=== PATIENT | female | born 1940 | race Caucasian/White ===

== ENCOUNTER 2022-12-17 07:47 | Day surgery (SDC) | payer MEDICARE, BC ==
[2022-12-12 10:45] LABS: BILIRUBIN,URINE NEGATIVE (Neg); CLARITY,URINE CLEAR (Clear); COLOR,URINE YELLOW (Yellow); GLUCOSE, URINE NEGATIVE (Neg); KETONES,URINE NEGATIVE (Neg); LEUKOCYTE ESTERASE ,URINE NEGATIVE (Neg); NITRITES, URINE NEGATIVE (Neg); OCCULT BLOOD,URINE TRACE-INTACT (Neg); PROTEIN,URINE NEGATIVE (Neg); UROBILINOGEN,URINE 0.2 E.U/dL (0.2-1.0)
[2022-12-12 10:52] LABS: ALBUMIN 4.2 G/DL (3.4-5.0); ALBUMIN/GLOBULIN RATIO 1.1 (1.1-1.5); ALKALINE PHOSPHATASE 86 IU/L (46-116); BLOOD UREA NITROGEN 12 MG/DL (7-18); BUN/CREATININE RATIO 15.2 (10.0-20.0); CALCIUM 9.9 MG/DL (8.5-10.1); CHLORIDE 103 MMOL/L (99-107); CREATININE 0.79 MG/DL (0.40-0.90); PRE OP ALT 33 U/L (30-65); PRE OP ANION GAP 9 (8-16); PRE OP AST 17 U/L (10-37); PRE OP BILIRUB, TOTAL 0.4 MG/DL (0.0-1.0); PRE OP GLUCOSE 77 MG/DL (70-104); PRE OP POTASSIUM 3.6 MMOL/L (3.4-5.1); PRE OP SODIUM 143 MMOL/L (135-145); TOTAL CARBON DIOXIDE 31.5 MMOL/L (24-32); TOTAL PROTEIN 7.9 G/DL (6.4-8.2); UA COLLECTION TYPE CLN CATCH MIDSTREAM; eGFR 70 ML/MIN
[2022-12-12 10:55] LABS: BACTERIA,URINE FEW /HPF (Neg); MUCUS STRANDS NONE SEEN /LPF (Neg); RBC,URINE 0-2 /HPF (0-2); SQUAMOUS EPITHELIAL CELL,UR FEW /LPF (FEW); WBC,URINE NONE SEEN /HPF (0-4)
[2022-12-12 11:08] LABS: BASOPHILS # (AUTO) 0.1 X10'3 (0-0.2); BASOPHILS % (AUTO) 1.1 % (0-1); EOSINOPHILS # (AUTO) 0.2 X10'3 (0-0.9); EOSINOPHILS % (AUTO) 3.4 % (0-6); LYMPHOCYTES # (AUTO) 1.2 X10'3 (1.1-4.8); LYMPHOCYTES % (AUTO) 19.9 % (21-51); MEAN CORPUSCULAR HEMOGLOBIN 30.9 PG (27.0-31.0); MEAN CORPUSCULAR HGB CONC 33.1 g/dL (33.0-36.5); MEAN CORPUSCULAR VOLUME 93.3 FL (78-98); MEAN PLATELET VOLUME 8.9 FL (7.4-10.4); MONOCYTES # (AUTO) 0.7 X10'3 (0-0.9); MONOCYTES % (AUTO) 10.7 % (2-12); NEUTROPHILS % (AUTO) 64.9 % (42-75); PRE OP HEMATOCRIT 44.7 % (35.0-45.0); PRE OP HEMOGLOBIN 14.8 g/dL (12.0-16.0); PRE OP PLATELET COUNT 306 X10'3 (140-440); PRE OP WHITE BLOOD COUNT 6.1 10'3 (4.8-10.8); RED BLOOD COUNT 4.79 X10'6 (4.20-5.60); RED CELL DISTRIBUTION WIDTH 13.1 % (11.5-14.5)
[~2022-12-17] VITALS: Ht 167.6 cm; Wt 50.0 kg
[2022-12-17] VITALS (10 sets, daily range): BP systolic 107–147; BP diastolic 49–69; PULSE 58–98; RESP 10–16; TEMP 98.1; O2SAT 93–100
[~2022-12-17 07:47] MED LIST: AMIT25TA9 PO; ATOR20TA66 PO; CHOL231P PO; FAMO40TA7 PO; FLUT1BLS16 INH; MULT-1085 PO; cefazolin 2gm/D5W 100mL 100 ML IV ONE; famotidine 20mg tablet PO ONE; ringers solution, lacted 1,000 ML IV SCH
[2022-12-17] MEDS ORDERED: BUPIVAcaine/PF 2.5 mg/ml (0.25%) 30ml vial ONE (10:01)
[2022-12-17] MEDS ORDERED: ringers solution, lacted 1,000 ML IV SCH (10:05)
[2022-12-17] MEDS ORDERED: hydrALAZINE 20mg/ml inj. IV PRN (10:05)
[2022-12-17] MEDS ORDERED: meperidine/PF 25mg/ml syringe IV PRN ×3 (10:05)
[2022-12-17] MEDS ORDERED: acetaminophen 1,000mg/100ml IV 100 ML IV PRN (10:05)
[2022-12-17] MEDS ORDERED: ondansetron/PF 4mg/2ml inj IV PRN (10:05)
[2022-12-17] MEDS ORDERED: labetalol 20mg/4ml (5mg/ml) syringe IV PRN (10:05)
[2022-12-17] MEDS ORDERED: morphine 4 MG/ML inj SYRINge IV PRN (10:05)
[2022-12-17] MEDS ORDERED: morphine 2 MG/ML inj. syringe IV PRN (10:05)
[2022-12-17] MEDS ORDERED: proCHLORperazine 10 MG/2 ml inj IV PRN (10:05)
[2022-12-17] MEDS ORDERED: sevoflurane 250ml liquid IH ONE (11:16)
[2022-12-17] MEDS ORDERED: fentaNYL/PF 50MCG/1 ML 2ML syringe ONE (11:17)
[2022-12-17] MEDS ORDERED: midazolam 1 mg/ML 2ml injection ONE (11:17)
[2022-12-17] MEDS ORDERED: LIDOcaine 2% (20mg/ml) 5ml vial ONE (11:46)
[2022-12-17] MEDS ORDERED: ondansetron/PF 4mg/2ml inj ONE (11:46)
[2022-12-17] MEDS ORDERED: dexamethasone sod phosphate 4mg/ml inj. ONE (11:46)
[2022-12-17] MEDS ORDERED: rocuronium 10mg/ml inj IV ONE (11:46)
[2022-12-17] MEDS ORDERED: propofol inj 20 ML IV ONE (11:46)
[2022-12-17] MEDS ORDERED: BUPIVAcaine/PF 2.5 mg/ml (0.25%) 30ml vial IJ ONE (11:55)
[2022-12-17] MEDS ORDERED: neostigmine methylsulfate 1 MG/ML 10ml vial ONE (12:33)
[2022-12-17] MEDS ORDERED: glycopyrrolate 0.2mg/ml inj ONE (12:33)
[2022-12-17] MEDS ORDERED: morphine 4 MG/ML inj SYRINge IV ONE (12:36)
--- NOTE | 2022-12-17 12:45 | NUR ---
Received from OR via [facility], accompanied by Anesthesiologist and report given by [facility] Anesthesiologist. PATIENT WAKING UP, DENIES PAIN, V/S WNL, SCD ON , PIV 20G ISAEL, NINO LAPS SITES CLOSED C/D/I TO ABDOMEN. Addendum: 12/17/22 at 1257 by Simón Larkin RN Amended: Links added.
--- NOTE | 2022-12-17 14:05 | NUR ---
ALL DISCHARGE CRITERIA HAS BEEN MET. VSS, PAIN AT A TOLERABLE LEVEL, ABLE TO SAFELY AMBULATE AND TRANSFER SELF. IV TAKEN OUT WITHOUT ANY COMPLICATIONS. ALL DISCHARGE INSTRUCTIONS COVERED WITH PATIENT AND ALL QUESTIONS ANSWERED. PATIENT TAKEN OUT VIA WHEELCHAIR WITH ALL BELONGINGS TO PERSONAL VEHICLE WHERE FRIEND DROVE PATIENT HOME. Addendum: 12/17/22 at 1406 by Simón Larkin RN Amended: Links added.
== END 2022-12-17 14:05 | disposition home or self-care (01) ==
LOC: PAS 07:47
PROVIDERS: ATTEND Surgery
DX: K40.20 Bilateral inguinal hernia, without obstruction or gangrene, not specified as recurrent (principal); K42.9 Umbilical hernia without obstruction or gangrene; K41.90 Unilateral femoral hernia, without obstruction or gangrene, not specified as recurrent; J44.9 Chronic obstructive pulmonary disease, unspecified; E78.5 Hyperlipidemia, unspecified; M19.90 Unspecified osteoarthritis, unspecified site; K21.9 Gastro-esophageal reflux disease without esophagitis; Z79.899 Other long term (current) drug therapy; Z96.651 Presence of right artificial knee joint; Z90.49 Acquired absence of other specified parts of digestive tract; Z98.890 Other specified postprocedural states; Z72.89 Other problems related to lifestyle
CPT/HCPCS: 49593; 49650; 80053; 81001; 82948; 85025; 93005; C1781; J0690; J1100; J2175; J2250; J2270; J2405; J2704; J2710; J3010; J3490; J7030; J7120; Z7506; Z7508; Z7512; A4215; A4618